=== PATIENT | female | born 1995 | race African-American/Black ===

== ENCOUNTER 2022-09-11 06:22 | Emergency (ER) | payer MEDICAID, OTHER ==
[~2022-09-11] VITALS: Ht 165.1 cm; Wt 55.0 kg
[2022-09-11] MEDS ORDERED: ACETAMINOPHEN 325MG TABLET PO ONE (07:45)
[2022-09-11 09:40] VITALS: BP 104/57
[2022-09-11] MEDS: ACETAMINOPHEN 325MG TABLET PO NR ×2 (09:40→10:30)
[2022-09-11] MEDS ORDERED: TOPUD PO (10:33)
[2022-09-11 11:05] LABS: BASOPHILS % 0.5 % (0.0-2.0); EOSINOPHILS % 1.1 % (0.0-5.0); HEMATOCRIT. 35.3 % (36.0-48.0); HEMOGLOBIN. 12.1 g/dL (12.0-16.0); LYMPHOCYTES % 36.3 % (20.0-50.0); MEAN CORPUSCULAR HEMOGLOBIN 30.1 pg (28.0-32.0); MEAN CORPUSCULAR VOLUME 87.9 fL (81.0-99.0); MEAN PLATELET VOLUME 7.6 fl (7.4-10.4); MONOCYTES % 7.1 % (2.0-8.0); PLATELET 257 x1000/uL (130-400); RED BLOOD CELL COUNT 4.02 mill/uL (4.2-5.4); RED CELL DISTRIBUTION WIDTH 13.2 % (11.6-14.6)
[2022-09-11 11:08] LABS: CHLORIDE 107 mEq/L (98-107)
[2022-09-11 11:12] LABS: CLARITY URINE CLEAR (CLEAR); COLOR URINE YELLOW (YELLOW); KETONES URINE NEGATIVE (NEGATIVE); LEUKOCYTE ESTERASE URINE NEGATIVE (NEGATIVE); NITRITE URINE NEGATIVE (NEGATIVE); OCCULT BLOOD URINE NEGATIVE (NEGATIVE); PROTEIN URINE NEGATIVE (NEGATIVE); SPECIFIC GRAVITY URINE 1.006 (1.005-1.030); UROBILINOGEN URINE 0.2 E.U./dL (0.2-1.0)
[2022-09-11 11:36] LABS: B-HCG QUANTITATIVE 123526 mIU/mL (<3)
== END 2022-09-11 11:35 | disposition home or self-care (01) ==
LOC: ER 06:22
DX: O20.0 Threatened abortion (principal); Z3A.10 10 weeks gestation of pregnancy
CPT/HCPCS: 36415; 76801; 80053; 81003; 81025; 84702; 85025; 99284

== ENCOUNTER 2023-10-01 12:55 | Emergency (ER) | payer MEDICAID, OTHER ==
[~2023-10-01] VITALS: Ht 162.6 cm; Wt 61.0 kg
[~2023-10-01 12:55] MED LIST: TOPUD PO
[2023-10-01 13:03] VITALS: BP 123/87; PULSE 75; RESP 18; O2SAT 100
[2023-10-01 13:30] VITALS: TEMP 98
[2023-10-01] MEDS: ACETAMINOPHEN 325MG TABLET PO ONE (13:30)
== END 2023-10-01 15:50 | disposition home or self-care (01) ==
LOC: ER 12:55
DX: M25.531 Pain in right wrist (principal); M54.50 Low back pain, unspecified; J45.909 Unspecified asthma, uncomplicated; Z91.040 Latex allergy status
CPT/HCPCS: 72100; 73110; 99284